=== PATIENT | male | born 1960 | race Caucasian/White ===

== ENCOUNTER 2019-03-30 11:02 | Day surgery (SDC) | payer OTHER ==
[~2019-03-30] VITALS: Ht 182.9 cm; Wt 97.7 kg
[~2019-03-30 11:02] MED LIST: NONE PER PT
[2019-03-30 11:19] VITALS: BP 113/79
[2019-03-30] MEDS ORDERED: GABAPENTIN 300 MG CAPSULE PO ONE (11:30)
[2019-03-30] MEDS ORDERED: ACETAMINOPHEN 500 MG TABLET PO ONE (11:30)
[2019-03-30] MEDS ORDERED: LACTATED RINGERS 1,000 ML IV SCH (11:38)
[2019-03-30] MEDS ORDERED: EPINEPHRINE 1 MG/ML, 1ML ONE (12:23)
[2019-03-30] MEDS ORDERED: BUPIVACAINE/PF 0.5% ONE (12:23)
[2019-03-30] MEDS ORDERED: MIDAZOLAM 1 MG/ML, 2ML ONE (12:24)
[2019-03-30] MEDS ORDERED: FENTANYL PF 250 MCG/5ML ONE (12:24)
[2019-03-30] MEDS ORDERED: MORPHINE SULFATE 4 MG/ML, 1ML IVPush PRN (13:00)
[2019-03-30] MEDS ORDERED: hydrALAzine 20 MG/ML, 1ML IV PRN (13:00)
[2019-03-30] MEDS ORDERED: LABETALOL 5MG/ML, 20ML IV PRN (13:00)
[2019-03-30] MEDS ORDERED: MEPERIDINE/PF 25MG/ML,1ML IVPush PRN (13:00)
[2019-03-30] MEDS ORDERED: ONDANSETRON 2MG/ML, 2ML IV PRN (13:00)
[2019-03-30] MEDS ORDERED: OXYcodone 5 MG/5 ML ORAL.SOL UDC PO PRN ×2 (13:00→14:00)
[2019-03-30] MEDS ORDERED: PROPOFOL 10 MG/ML, 20ML ONE (13:15)
[2019-03-30] MEDS ORDERED: ROCURONIUM 10MG/ML,5ML ONE (13:15)
[2019-03-30] MEDS ORDERED: CEFAZOLIN 1,000 MG ONE (13:15)
[2019-03-30] MEDS ORDERED: NEOSTIGMINE 1 MG/ML, 10ML ONE (13:15)
[2019-03-30] MEDS ORDERED: GLYCOPYRROLATE 0.2MG/1ML, 5ML ONE (13:15)
[2019-03-30] MEDS ORDERED: DEXAMETHASONE 4 MG/ML, 1ML ONE (13:15)
[2019-03-30] MEDS ORDERED: FENTANYL PF 100 MCG/2ML ONE (14:04)
[2019-03-30] MEDS ORDERED: OXYcodone 5 MG/5 ML ORAL.SOL UDC ONE (14:04)
[2019-03-30] MEDS: FENTANYL PF 100 MCG/2ML IV PRN ×2 (14:08→14:14)
[2019-03-30] MEDS ORDERED: HYDROmorphone 1 MG/ML, 1ML VIAL ONE (14:20)
[2019-03-30] MEDS: HYDROmorphone 2 MG/ML, 1ML IVPush PRN ×3 (14:23→14:41)
== END 2019-03-30 16:45 | disposition home or self-care (01) ==
LOC: OUT 11:02
PROVIDERS: ATTEND Surgery
DX: K43.9 Ventral hernia without obstruction or gangrene (principal); D17.6 Benign lipomatous neoplasm of spermatic cord; Z72.89 Other problems related to lifestyle; Z87.891 Personal history of nicotine dependence
CPT/HCPCS: 49652; C1781; J0171; J0690; J1100; J1170; J2250; J2704; J2710; J3010; S2900